=== PATIENT | male | born 1975 | race American Indian/Alaskan Native ===

== ENCOUNTER 2021-02-07 22:10 | Emergency (ER) | payer OTHER ==
[2021-02-08 01:39] VITALS: BP 133/84
[2021-02-08] MEDS ORDERED: TETANUS,DIPH,PERTUSS(ACELL) VACCINE 0.5 ML SYRINGE IM ONE (02:01)
[2021-02-08] MEDS ORDERED: IBUPROFEN 600 MG TAB PO ONE (02:01)
[2021-02-08] MEDS ORDERED: ACETAMINOPHEN 500 MG TAB PO ONE (02:01)
--- NOTE | 2021-02-08 02:42 | XRay Report ---
Lumbar spine 2 views INDICATION: Low back pain IMPRESSION: Mild multilevel discogenic and facet arthropathy particularly at L5-S1 where there is mod erate bilateral neural foraminal stenosis. No severe vertebral body height loss is identified. Mild s coliosis of the thoracolumbar spine, convex to the right. Signer Name: Jose Luis Cameron MD Signed: 02/08/2021 2:38 AM Workstation Name: [id number]
--- NOTE | 2021-02-08 03:06 | Cat Scan Report ---
CT head without contrast INDICATION : Headache following injury TECHNIQUE: Axial imaging performed from the skull apex through the skull base without the use of con trast. All CT examinations performed at this facility utilize dose modulation, iterative reconstruct ion or weight-based dosing, when appropriate, to reduce radiation dose to as low as reasonably achiev able. COMPARISON: None FINDINGS: No acute intracranial hemorrhage or parenchymal abnormality. Ventricles are normal in si ze and appear symmetric. The orbits are unremarkable. There is a 1.6 cm collection/cyst just anterior to the calvarium/right frontal bone just to the right of midline, age indeterminate but possibly chr onic. No acute osseous abnormality. Sinuses and mastoid air cells are clear. IMPRESSION: No acute intracranial pathology. Signer Name: Jose Luis Cameron MD Signed: 02/08/2021 3:02 AM Workstation Name: [id number]
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
== END 2021-02-08 04:26 | disposition home or self-care (01) ==
LOC: ED 22:10
DX: M62.830 Muscle spasm of back (principal); M54.5 Low back pain; G44.319 Acute post-traumatic headache, not intractable; V89.2XXA Person injured in unspecified motor-vehicle accident, traffic, initial encounter; Y93.89 Activity, other specified; Y92.89 Other specified places as the place of occurrence of the external cause; Y99.8 Other external cause status
CPT/HCPCS: 70450; 72100; 90715; 99283